=== PATIENT | female | born 1970 | race Two or more races ===

== ENCOUNTER → 2019-12-06 | Outpatient (CLI) | payer BC ==
[2019-12-06 09:15] LABS: Basophils # (auto) 0 uL; Basophils % (auto) 0.6 % (0.0-2.0); Eosinophils # (auto) 0.2 uL; Lymphocytes # (auto) 1.6 uL; Lymphocytes % (auto) 23.9 % (10.0-50.0); Mean Corpuscular Hemoglobin 29.6 pg (28.0-32.0); Mean Corpuscular Hgb Conc. 34.2 g/dL (32.0-36.0); Mean Corpuscular Volume 86.6 fL (80.0-100.0); Monocytes # (auto) 0.4 uL; Monocytes % (auto) 6.4 % (0.0-12.0); Neutrophils # (auto) 4.5 uL; Neutrophils % (auto) 66.1 % (37.0-80.0); Nucleated Red Blood Cells % 0.1 %; Platelet Count (auto) 361 10^3/uL (140-450); Red Blood Cells 4.39 10^6/uL (4.0-5.20); Red Cell Distribution Width 13.3 % (11.8-14.3); White Blood Cell 6.8 10^3/uL (4.4-10.8)
[2019-12-06 09:31] LABS: Albumin 3.9 g/dL (3.4-5.0); Calcium 8.9 mg/dL (8.5-10.1); Potassium 3.8 mmol/L (3.5-5.1)
[2019-12-06 09:36] LABS: BUN/Creatinine Ratio 15.1; Bilirubin, Total 0.4 mg/dL (0.2-1.0); Total Protein 8.2 g/dL (6.4-8.2)
== END | disposition home or self-care (01) ==
LOC: LAB 08:50
PROVIDERS: ATTEND Internal Medicine
DX: Z00.00 Encounter for general adult medical examination without abnormal findings (principal); E55.9 Vitamin D deficiency, unspecified; E02 Subclinical iodine-deficiency hypothyroidism; Z87.11 Personal history of peptic ulcer disease
CPT/HCPCS: 36415; 80053; 80061; 82306; 84439; 84443; 85025

== ENCOUNTER 2024-09-26 21:48 | Emergency (ER) | payer BC, MEDICAID ==
[~2024-09-26] VITALS: Ht 160 cm; Wt 58.4 kg
--- NOTE | 2024-09-26 22:59 | DVH ---
EXAM: CT HEAD WITHOUT CONTRAST INDICATION: Fall/head trauma TECHNIQUE: CT of the head without intravenous contrast. Radiation Dose Information: CT Dose: CTDI volume is 51.5 cm mGy. Dose-length product is 913.19 mGy*cm The dose indicators for CT are the volume Computed Tomography (CT) Dose Index (CTDIvol) and the Dose Length Product (DLP), and are measured in units of mGy and mGy-cm, respectively. These indicators are not patient dose, but values generated from the CT scanner acquisition factors. The report includes radiation exposure data for exposures received during this examination. COMPARISON: None FINDINGS: There is no evidence of acute intracranial hemorrhage, extra-axial collection, mass effect, midline s hift, herniation or hydrocephalus. The ventricles, sulci and cisterns are age appropriate. The waters-white differentiation is intact. Patchy periventricular and subcortical white matter hypoattenuation is nonspecific but may be related to small vessel ischemic disease. The visualized paranasal sinuses and mastoid air cells are clear. The surrounding soft tissues and osseous structures are unremarkable. IMPRESSION: 1. No acute intracranial hemorrhage. 2. No CT findings suggest skull fracture. 3. No CT findings of territorial ischemia.
--- NOTE | 2024-09-26 23:47 | DVH ---
CLINICAL HISTORY: Fall/trauma TECHNIQUE: CT exam of the cervical spine was performed without intravenous contrast. This exam was pe rformed according to our departmental dose optimization program. Up-to-date CT equipment and radiatio n dose reduction techniques are utilized as appropriate. WID: COMPARISON: None FINDINGS: There is normal cervical alignment. The vertebral body heights are maintained. No acute cervical frac ture or subluxation is identified. No significant central or neural foraminal narrowing is identified . The paraspinous soft tissues are unremarkable. Biapical pleural-parenchymal scarring. Heterogeneit y of the thyroid gland. IMPRESSION: No acute fracture or traumatic malalignment.
[2024-09-26] MEDS ORDERED: IBUP-1454 PO (23:58)
[2024-09-26] MEDS ORDERED: HYDR-4902 PO (23:58)
--- NOTE | 2024-09-26 23:59 | ED.PDOC ---
Gal. trauma (HPI) HPI Comments This patient is a pleasant 54-year-old female who arrives to the ED today for evaluation of back neck and head pain status post fall while with a hike two days ago. Patient states she was in [place] when [place] through [place] and unfortunately slipped and fell, landing on her back neck and head. Patient denies any LOC, but stating that she has got significant neck and head pain at this time. Patient denies any fever nausea or vomiting. Vital signs were stable on arrival. Chief Complaint: Fall Injury Time Seen by MD: 21:58 Primary Care Provider: Kana Reaves notes: Nurses Notes Allergies: Coded Allergies: NO KNOWN ALLERGIES (Unverified , 09/26/24) Information Source: Patient Mode of Arrival: Ambulatory Severity: Moderate Timing: Days Duration: Since onset Prehospital treatment: Pain Meds Location: Head, Neck Location of neck pain: (R) Posterior, (L) Posterior Location of laceration: None Mechanism: Fall Past Medical History PAST MEDICAL HISTORY: Denies Surgical History: Denies all surgeries DIALYSIS NURSE History: No Pertinent DIALYSIS NURSE History Family History Family History: Reviewed,noncontributory to illness, No family hx of Cancer, No family hx of DM, No family hx of Heart [place], No family hx of HTN, No family hx ofKidney carl[place], No family hx of Liver carl[place], No family hx of Lung car[place], No family hx of Stroke Social History Smoker: Non-Smoker Alcohol: Denies ETOH Use Drugs: Denies Drug Use Lives In: Home Constitutional: denies: chills, diaphoresis, fatigue, fever, malaise, sweats, weakness, others EENTM: denies: blurred vision, double vision, ear bleeding, ear discharge, ear drainage, ear pain, ear ringing, eye pain, eye redness, hearing loss, mouth pain, mouth swelling, nasal discharge, nose bleeding, nose congestion, nose pain, photophobia, tearing, throat pain, throat swelling, voice changes, others Respiratory: denies: cough, hemoptysis, orthopnea, SOB at rest, shortness of breath, SOB with excertion, stridor, wheezing, others Cardiovascular: denies: chest pain, dizzy spells, diaphoresis, Dyspnea on exertion, edema, irregular heart beat, left arm pain, lightheadedness, palpitations, PND, syncope, others Gastrointestinal: denies: abdomen distended, abdominal pain, blood streaked bowels, constipated, diarrhea, dysphagia, difficulty swallowing, hematemesis, melena, nausea, poor appetite, poor fluid intake, rectal bleeding, rectal pain, vomiting, others Genitourinary: denies: abnormal vagina bleeding, burning, dyspareunia, dysuria, flank pain, frequency, hematuria, incontinence, pain, , vagina discharge, urgency, others Neurological: reports: headache; denies: dizziness, fainting, left sided numbness, left sided weakness, numbness, paresthesia, pre-existing deficit, right sided numbness, right sided weakness, seizure, speech problems, tingling, tremors, weakness, others Musculoskeletal: reports: neck pain; denies: back pain, gout, joint pain, joint swelling, muscle pain, muscle stiffness, others Integumetry: denies: bruises, change in color, change in hair/nails, dryness, laceration, lesions, lumps, rash, wounds, others Allergic/Immunocompromised: denies: Difficulty Healing, Frequent Infections, Hives, Itching, others Hematologic/Lymphatic: denies: anemia, blood clots, easy bleeding, easy bruising, swollen glands, others Endocrine: denies: excessive hunger, excessive sweating, excessive thirst, excessive urination, flushing, intolerance to cold, intolerance to heat, unexplained weight gain, unexplained weight loss, others Psychiatric: denies: anxiety, bipolar disorder, depression, hopeless, panic disorder, schizophrenia, sleepless, suicidal, others Physical Exam General Appearance: Moderate Distress (Due to head and neck pain concerns.), Normal HEENT: Head (Cranial exam was relatively unremarkable. No definitive skull depressions or deformities. Patient complains of occipital lobe pain.), Normal ENT Inspection, Pharynx Normal, TMs Normal Neck: Other (Neck was diffusely tender to palpation bilaterally throughout the posterior aspect. Moderate hypertonicity appreciated. No definitive step-offs. 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 Was a procedure done?: No Differential Diagnosis Multiple Trauma: Closed Head Injury, Fractures, Contusion, Other (Cervical vertebrae fracture, skull fracture, subarachnoid hemorrhage, subdural hematoma) X-Ray, Labs, Meds, VS Vital Signs Date Time Temp Pulse Resp B/P (MAP) Pulse Ox O2 Delivery O2 Flow Rate FiO2 09/26/24 21:57 98.2 55 18 136/67 (90) 98 X-Ray, Labs, Meds, VS Comment All studies performed in the ED today were evaluated by me personally. Imaging studies were unremarkable for any acute cervical spine fracture or cervical concern. CT head was unremarkable for any subarachnoid hemorrhage or subdural hematoma. No skull fractures noted. Patient sustained some head trauma and cervical muscle strain due to her follow up. Advised pain medication as needed for symptomatic relief as well as ice therapy. Time of 1ST Reevaluation: 23:55 Reevaluation 1ST: Improved Consultation: PCP Patient Education/Counseling: Diagnosis, Treatment Family Education/Counseling: Diagnosis, Treatment Departure 1 Departure Time of Disposition: 23:55 Impression: Primary Impression: Head trauma Additional Impressions: Cervical muscle strain Back contusion Disposition: HOME / SELF CARE / HOMELESS Condition: Stable Additional Instructions: Advise utilizing pain medication as needed for symptomatic relief as well as ice therapy. e-Prescriptions Hydrocodone-Acetaminophen (Hydrocodone Bitartrate/AC 5-325 mg) 1 Tab Tab 1 TAB PO Q6HP PRN, #10 TAB Prov: EDWIN SCHAFER PAC 09/26/24 Ibuprofen (Ibuprofen) 600 Mg Tab 1 TAB PO Q6HP PRN, #30 TAB Prov: EDWIN SCHAFER PAC 09/26/24 Discharged With: Self, Friend Critical Care Note Critical Care Time?: No Stability Stability form required: No Heart Score Heart Score: Heart Score Response (Comments) Value History N/A 0 EKG N/A 0 Age N/A 0 Risk Factors N/A 0 Troponin N/A 0 Total 0 EDWIN SCHAFER PAC Sep 26, 2024 23:59
[2024-09-27] VITALS: BP 119/71; PULSE 65; RESP 16; TEMP 98.1; O2SAT 96
[2024-09-27] MEDS: HYDROcodone-ACET 10/325MG TAB PO ONE (00:06)
== END 2024-09-27 | disposition home or self-care (01) ==
LOC: ER 21:48
DX: S16.1XXA Strain of muscle, fascia and tendon at neck level, initial encounter (principal); S20.229A Contusion of unspecified back wall of thorax, initial encounter; S09.90XA Unspecified injury of head, initial encounter; W18.39XA Other fall on same level, initial encounter; Y93.01 Activity, walking, marching and hiking; Y92.89 Other specified places as the place of occurrence of the external cause; Y99.8 Other external cause status
CPT/HCPCS: 70450; 72125